=== PATIENT | male | born 1955 | race Caucasian/White ===

== ENCOUNTER → 2018-10-18 | Outpatient (CLI) | payer SELFPAY | LOC: RAD 09:21 | DX: K59.01 Slow transit constipation (principal); G47.9 Sleep disorder, unspecified; K60.2 Anal fissure, unspecified; R09.89 Other specified symptoms and signs involving the circulatory and respiratory systems; G47.01 Insomnia due to medical condition ==

== ENCOUNTER → 2018-10-20 | Outpatient (CLI) | payer SELFPAY | LOC: LAB 07:07 | DX: R10.9 Unspecified abdominal pain (principal); R09.89 Other specified symptoms and signs involving the circulatory and respiratory systems; K59.01 Slow transit constipation; G47.01 Insomnia due to medical condition; K60.1 Chronic anal fissure ==